=== PATIENT | male | born 1960 | race Caucasian/White ===

== ENCOUNTER 2023-01-19 07:33 | Day surgery (SDC) | payer BC ==
[~2023-01-19 07:33] MED LIST: Lactated Ringers 1,000 ML IV SCH
[2023-01-19] MEDS ORDERED: Ondansetron 4 MG/2 ML SDV IVPUSH ONE (07:34)
[2023-01-19] MEDS ORDERED: propofoL 50 ML ONE (07:54)
[2023-01-19] MEDS ORDERED: Dexmedetomidine 200 MCG/2 ML SDV ONE (08:03)
[2023-01-19] MEDS ORDERED: fentaNYL 100 MCG/2 ML SDV ONE (09:05)
[2023-01-19] MEDS ORDERED: Lactated Ringers 1,000 ML IV SCH (10:15)
== END 2023-01-19 10:50 | disposition home or self-care (01) ==
LOC: MW.SDS 07:33
PROVIDERS: ATTEND Surgery
DX: Z12.11 Encounter for screening for malignant neoplasm of colon (principal); K57.30 Diverticulosis of large intestine without perforation or abscess without bleeding; I10 Essential (primary) hypertension; E11.9 Type 2 diabetes mellitus without complications; E78.5 Hyperlipidemia, unspecified; Z79.82 Long term (current) use of aspirin; Z79.84 Long term (current) use of oral hypoglycemic drugs; Z79.899 Other long term (current) drug therapy; Z79.02 Long term (current) use of antithrombotics/antiplatelets; Z90.89 Acquired absence of other organs; Z87.891 Personal history of nicotine dependence; Z98.890 Other specified postprocedural states; Z95.1 Presence of aortocoronary bypass graft; Z80.0 Family history of malignant neoplasm of digestive organs
CPT/HCPCS: 45378; 82947; J2405; J2704; J3010; J7120; 00812; J3490